=== PATIENT | female | born 1980 | race Caucasian/White ===

== ENCOUNTER 2016-06-26 14:39 | Outpatient (CLI) | payer OTHER, MEDICAID | END 2016-06-26 14:40 | disposition home or self-care (01) | DX: Z00.00 Encounter for general adult medical examination without abnormal findings (principal) ==

== ENCOUNTER 2018-08-04 21:31 | Outpatient (CLI) | payer BC ==
--- NOTE | 2018-08-05 09:16 | Ultrasound Report ---
Reason: FEMALE URINARY STRESS INCONTINENCE, CHRONIC PELVIC Procedure Date: 08/04/2018 Accession Number: [id number] / [id number] Procedure: US - Pelvic w/Transvaginal CPT Code: FULL RESULT: EXAM: PELVIC ULTRASOUND EXAM DATE: 08/04/2018 11:05 PM. CLINICAL HISTORY: Female urinary stress incontinence, chronic pelvic pain. COMPARISON: None. TECHNIQUE: Realtime transabdominal pelvic scan performed to identify the uterus and adnexa and as an overview of other pelvic structures, followed by transvaginal scan to provide greater detail of the uterus and adnexa, with static image documentation. FINDINGS: Uterus: 7.5 x 5.4 x 4.2 cm, volume 89 cc. Retroverted position. Normal overall size and echotexture. Masses: None. Endometrium: 9 mm. Normal. Cervix: Unremarkable. Right Ovary: 2.9 x 1.9 x 2.4 cm, volume 6.9 cc. Normal echotexture and blood flow. Left Ovary: 3.5 x 2.4 x 1.6 cm, volume 7.0 cc. Normal echotexture and blood flow. Free Fluid: Small free fluid in the cul-de-sac within physiologic limits. Other: None. IMPRESSION: Normal pelvic ultrasound. RADIA
== END 2018-08-04 21:32 | disposition home or self-care (01) ==
LOC: DI 21:31
PROVIDERS: ATTEND Obstetrics & Gynecology
DX: N39.3 Stress incontinence (female) (male) (principal); R10.2 Pelvic and perineal pain; N94.6 Dysmenorrhea, unspecified
CPT/HCPCS: 76830; 76856

== ENCOUNTER 2019-05-13 12:39 | Emergency (ER) | payer OTHER ==
[2019-05-13 13:01] VITALS: BP 125/93
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
[2019-05-13] MEDS ORDERED: ACETAMINOPHEN 325 MG TABLET PO STA (14:46)
[2019-05-13] MEDS ORDERED: TETANUS/DIPHTHERIA/PERTUSSIS 0.5 ML SYRINGE IM ONE (14:46)
== END 2019-05-13 17:19 | disposition home or self-care (01) ==
LOC: ED 12:39
DX: S50.02XA Contusion of left elbow, initial encounter (principal); S50.312A Abrasion of left elbow, initial encounter; S50.871A Other superficial bite of right forearm, initial encounter; W50.3XXA Accidental bite by another person, initial encounter; W20.8XXA Other cause of strike by thrown, projected or falling object, initial encounter; Y92.009 Unspecified place in unspecified non-institutional (private) residence as the place of occurrence of the external cause; Z23 Encounter for immunization
CPT/HCPCS: 90471; 90715; 99283; 99284; A9270

== ENCOUNTER 2020-01-16 16:25 | Outpatient (CLI) | payer OTHER | END 2020-01-16 16:26 | disposition home or self-care (01) | LOC: COV 16:25 | PROVIDERS: ATTEND Family Medicine | DX: Z20.828 Contact with and (suspected) exposure to other viral communicable diseases (principal) ==

== ENCOUNTER 2020-01-18 13:02 | Emergency (ER) | payer OTHER ==
[2020-01-18 13:37] LABS: BASOPHILS # (AUTO) 0.1 10^3/uL (0.0-0.1); EOSINOPHILS # (AUTO) 0.1 10^3/uL (0.0-0.7); HGB - HEMOGLOBIN 14.1 g/dL (12.0-16.0); LYMPHOCYTES # (AUTO) 2.4 10^3/uL (1.5-3.5); LYMPHOCYTES % (AUTO) 39.9 %; MEAN CORPUSCULAR HEMOGLOBIN 29.9 pg (27.0-31.0); MEAN CORPUSCULAR HGB CONC 34.5 g/dL (32.0-36.0); MEAN CORPUSCULAR VOLUME 86.8 fL (81.0-99.0); MEAN PLATELET VOLUME 9.7 fL (7.9-10.8); MONOCYTES # (AUTO) 0.4 10^3/uL (0.0-1.0); MONOCYTES % (AUTO) 6.8 %; PLT - PLATELET COUNT 311 10^3/uL (130-450); RED BLOOD COUNT 4.71 10^6/uL (4.20-5.40); RED CELL DISTRIBUTION WIDTH 12.3 % (12.0-15.0); WHITE BLOOD COUNT 6.1 x10^3/uL (4.8-10.8)
[2020-01-18 13:51] LABS: ALBUMIN 4.3 g/dL (3.2-5.5); ALBUMIN/GLOBULIN RATIO 1.4 (1.0-2.2); BILIRUBIN,TOTAL 0.8 mg/dL (0.2-1.0); CALCIUM 9.2 mg/dL (8.5-10.3); CREATININE 0.7 mg/dL (0.4-1.0); TOTAL PROTEIN 7.3 g/dL (6.7-8.2)
--- NOTE | 2020-01-18 14:16 | XRAY Report ---
PROCEDURE: Chest 1 View X-Ray INDICATIONS: Chest pain TECHNIQUE: One view of the chest was acquired. COMPARISON: None FINDINGS: Surgical changes and devices: None. Lungs and pleura: No pleural effusions or pneumothorax. Lungs are clear. Mediastinum: Mediastinal contours appear normal. Heart size is normal. Bones and chest wall: No suspicious bony lesions. Overlying soft tissues appear unremarkable. IMPRESSION: No evidence acute pulmonary process. Reviewed by: Chaim Olsen MD on 01/18/2020 1:15 PM AKALFONZO Approved by: Chaim Olsen MD on 01/18/2020 1:15 PM AKDT Station ID: [id number]
--- NOTE | 2020-01-18 15:09 | ED Physician Documentation ---
History of Present Illness - Stated complaint Stated Complaint: CHEST TIGHTNESS - Chief complaint Chief Complaint: Cardiac - Additonal information Additional information: 39-year-old female presents to the emergency department for evaluation of acute onset chest tightness and pain that began this morning about 9 AM when drinking coffee. She denies that she has had fevers or cough. Chest pain is not pleuritic. She does not carry history of hypertension or diabetes. She is not a smoker. However she does report a history of a DVT when she was . Review of Systems Constitutional: reports: Reviewed and negative Eyes: reports: Reviewed and negative Ears: reports: Reviewed and negative Throat: reports: Reviewed and negative Cardiac: reports: Chest pain / pressure, Palpitations Respiratory: reports: Reviewed and negative GI: reports: Reviewed and negative : reports: Reviewed and negative Skin: reports: Reviewed and negative Musculoskeletal: reports: Reviewed and negative PD PAST MEDICAL HISTORY - Past Medical History Past Medical History: Yes - Past Surgical History Past Surgical History: No - Allergies Allergies/Adverse Reactions: Allergies Allergy/AdvReac Type Severity Reaction Status Date / Time No Known Drug Allergies Allergy Verified 01/18/20 13:22 - Social History Does the pt smoke?: No Smoking Status: Never smoker Does the pt drink ETOH?: No Does the pt have substance abuse?: No - Immunizations Immunizations are current?: Yes - POLST Patient has POLST: No PD ED PE NORMAL - General General: Alert and oriented X 3, No acute distress - HEENT HEENT: Atraumatic, EOMI - Cardiac Cardiac: RRR, No murmur, No gallop, No rub, Strong equal pulses - Respiratory Respiratory: No respiratory distress - Abdomen Abdomen: Normal bowel sounds, Soft - Female Female : Deferred - Back Back: No CVA TTP - Derm Derm: Normal color, Warm and dry - Extremities Extremities: No deformity, No tenderness to palpate, Normal ROM s pain - Neuro Neuro: Alert and oriented X 3 Eye Opening: Spontaneous Motor: Obeys Commands Verbal: Oriented GCS Score: 15 Results - Vitals Vitals: Vital Signs - 24 hr 01/18/20 01/18/20 01/18/20 13:10 14:21 16:24 Temperature 37 C 37 C Heart Rate 82 81 72 Respiratory 16 16 16 Rate Blood Pressure 130/85 H 130/85 H 145/91 H O2 Saturation 98 100 99 Oxygen O2 Source Room air - EKG (time done) 1315 Rate: Rate (enter#) (79) Rhythm: NSR [place]: Normal Intervals: Normal [place] QRS: Normal Ischemia: Normal ST segments Computer interpretation: Agree with computer - Labs Labs: Laboratory Tests 01/18/20 01/18/20 01/18/20 13:33 13:33 13:33 WBC 6.1 RBC 4.71 Hgb 14.1 Hct 40.9 MCV 86.8 MCH 29.9 MCHC 34.5 RDW 12.3 Plt Count 311 MPV 9.7 Neut # (Auto) 3.0 Lymph # (Auto) 2.4 [place] # (Auto) 0.4 Eos # (Auto) 0.1 Baso # (Auto) 0.1 Absolute Nucleated RBC 0.00 Nucleated RBC % 0.0 Sodium 136 Potassium 4.0 Chloride 102 Carbon Dioxide 25 Anion Gap 9.0 BUN 10 Creatinine 0.7 Estimated GFR (MDRD) 93 Glucose 105 H Calcium 9.2 Total Bilirubin 0.8 AST 18 ALT 23 Alkaline Phosphatase 46 Troponin I High Sens < 2.3 L Total Protein 7.3 Albumin 4.3 Globulin 3.0 Albumin/Globulin Ratio 1.4 Lipase 24 Ur Specific [place] Urine HCG, Qual 01/18/20 15:21 WBC RBC Hgb Hct MCV MCH MCHC RDW Plt Count MPV Neut # (Auto) Lymph # (Auto) [place] # (Auto) Eos # (Auto) Baso # (Auto) Absolute Nucleated RBC Nucleated RBC % Sodium Potassium Chloride Carbon Dioxide Anion Gap BUN Creatinine Estimated GFR (MDRD) Glucose Calcium Total Bilirubin AST ALT Alkaline Phosphatase Troponin I High Sens Total Protein Albumin Globulin Albumin/Globulin Ratio Lipase Ur Specific [place] 1.025 Urine HCG, Qual NEGATIVE - Rads (name of study) CT angio chest Radiology: Final report received (No evidence of pulmonary emboli. No thoracic aortic aneurysm or dissection. Lungs are clear.) PD MEDICAL DECISION MAKING - ED course Complexity details: reviewed results, considered differential, d/w patient ED course: 39-year-old female presents to the emergency department with acute onset chest discomfort and chest tightness this morning. She does have a history of previous DVT when she was that they had attributed to OCP use. Her EKG today is nonischemic. Her labs are otherwise unremarkable with a negative high- sensitivity troponin. Chest x-ray shows no acute infiltrates. CT angio was performed of the chest and it does not show any pulmonary emboli clear. At this time patient is stable for discharge home. Advised to schedule close follow-up with her primary care doctor. Departure - Departure Disposition: Home, Self Care Clinical Impression: Chest pain Qualifiers: Chest pain type: unspecified Qualified Code(s): R07.9 - Chest pain, unspecified Condition: Stable Record reviewed to determine appropriate education?: Yes Instructions: ED Chest Pain NonCardiac Follow-Up: BECKA RASCON, MSN, DIVISION CHAIR [Primary Care Provider] - Comments: Sandra your chest x-ray EKG labs were all normal today. The CT of your chest di d not show a blood clot. It is possible that the muscles in between your ribs are inflamed. I do recommend that you take ibuprofen at home for pain. Please schedule close follow-up with your primary care doctor. He return to the emergency department with any difficulty breathing, leg swelling or bloody sputum
[2020-01-18 15:35] LABS: HCG UR QUAL NEGATIVE
[2020-01-18] MEDS ORDERED: IOVERSOL 320 100 ML VIAL IVP ONE ×2 (16:10→17:33)
--- NOTE | 2020-01-18 16:41 | CT Report ---
PROCEDURE: ANGIO CHEST W/WO INDICATIONS: hx of DVT; chest pain and dyspnea CONTRAST: IV CONTRAST: Optiray 320 ml: 80 PO CONTRAST: *NO PO CONTRAST TECHNIQUE: After the administration of intravenous contrast, 2 mm thick sections acquired from the pulmonary api paloma to the posterior costophrenic angles. 3-dimensional maximum intensity projection (MIP) coronal a nd sagittal reformats were then acquired through the thorax. For radiation dose reduction, the follow ing was used: automated exposure control, adjustment of mA and/or kV according to patient size. COMPARISON: Chest radiograph on the same date. FINDINGS: Image quality: Excellent. Pulmonary arteries: Pulmonary arteries are normal in size, and demonstrate no intraluminal filling d efects to suggest central pulmonary embolism. Lungs and pleura: Lungs are clear. No pleural effusions or pneumothorax. Central and peripheral ai rways are patent. Mediastinum: Heart size is normal, without pericardial effusion. No mediastinal or hilar adenopathy . Thoracic aorta is normal in caliber and enhancement. Esophagus is normal in caliber, without hiat al hernia. Bones and chest wall: No suspicious bony lesions. Ribs and thoracic spine appear intact throughout. The thyroid is normal. No axillary or supraclavicular adenopathy. Abdomen: Visualized upper abdominal solid organs appear normal in the early arterial phase of enhanc ement. There is mild hepatic steatosis. IMPRESSION: 1. No evidence of pulmonary emboli. No thoracic aortic aneurysm or dissection. 2. Lungs are clear. Reviewed by: Twin Youssef MD on 01/18/2020 4:40 PM PDT Approved by: Twin Youssef MD on 01/18/2020 4:40 PM PDT Station ID: [id number]
[2020-01-18 17:01] VITALS: BP 146/91
== END 2020-01-18 17:07 | disposition home or self-care (01) ==
LOC: ED 13:02
DX: R07.9 Chest pain, unspecified (principal); Z86.718 Personal history of other venous thrombosis and embolism
CPT/HCPCS: 36415; 71045; 71275; 80053; 81025; 83690; 84484; 85025; 93005; 99284; Q9967

== ENCOUNTER 2020-07-09 08:00 | Outpatient (CLI) | payer OTHER ==
[2020-07-09 12:15] LABS: CALCIUM 9.2 mg/dL (8.5-10.3); CREATININE 0.6 mg/dL (0.4-1.0)
[2020-07-09 12:34] LABS: THYROID STIMULATING HORMONE 1.63 uIU/mL (0.34-5.60)
[2020-07-09 12:35] LABS: CHOL/HDL RATIO 5.9 (<4.4); CHOLESTEROL 290 mg/dL; HDL CHOLESTEROL 49 mg/dL; LDL CHOLESTEROL,CALCULATED 189 mg/dL; LDL/HDL RATIO 3.9 (<4.4); TRIGLYCERIDES 258 mg/dL; VLDL CHOLESTEROL 52 mg/dL
[2020-07-09 12:38] LABS: ESTIMATED AVERAGE GLUCOSE 114 mg/dL (70-100); HEMOGLOBIN A1c% 5.6 % (4.27-6.07)
== END 2020-07-09 23:59 | disposition home or self-care (01) ==
LOC: LAB.WCP 08:00
PROVIDERS: ATTEND Nurse Practitioner Family
DX: E66.9 Obesity, unspecified (principal); E28.2 Polycystic ovarian syndrome
CPT/HCPCS: 36415; 80048; 80061; 83036; 83721; 84443

== ENCOUNTER 2020-07-22 17:08 | Outpatient (CLI) | payer OTHER | END 2020-07-22 17:09 | disposition home or self-care (01) | LOC: COV 17:08 | PROVIDERS: ATTEND Family Medicine | DX: R19.7 Diarrhea, unspecified (principal); R09.81 Nasal congestion; Z20.822 Contact with and (suspected) exposure to COVID-19 ==

== ENCOUNTER 2020-09-19 08:00 | Outpatient (CLI) | payer OTHER | END 2020-09-19 23:59 | disposition home or self-care (01) | LOC: LAB.N 08:00 | PROVIDERS: ATTEND Family Medicine | DX: R35.0 Frequency of micturition (principal) | CPT/HCPCS: 87086 ==

== ENCOUNTER 2020-11-14 10:45 | Outpatient (CLI) | payer OTHER ==
[2020-11-14 18:01] LABS: BILIRUBIN,URINE NEGATIVE (NEGATIVE); GLUCOSE, URINE (UA) NEGATIVE (NEGATIVE); KETONES,URINE (UA) NEGATIVE (NEGATIVE); LEUKOCYTE ESTERASE, URINE NEGATIVE (NEGATIVE); NITRITE,URINE NEGATIVE (NEGATIVE); OCCULT BLOOD,URINE NEGATIVE (NEGATIVE); PH,URINE 5.5 PH (5.0-7.5); PROTEIN,URINE NEGATIVE (NEGATIVE); UROBILINOGEN,URINE 0.2 (NORMAL) E.U./dL (NORMAL)
[2020-11-14 18:05] LABS: CLARITY,URINE CLOUDY (CLEAR)
[2020-11-14 18:20] LABS: AMORPHOUS SEDIMENT,UR Marked /LPF; BACTERIA,URINE Rare /HPF (None Seen); RBC,URINE 0-5 /HPF (0-5); SQUAMOUS EPITHELIAL CELL,UR RARE Squamous (<= Few); WBC,URINE 0-3 /HPF (0-5)
== END 2020-11-14 23:59 | disposition home or self-care (01) ==
LOC: LAB.WCP 10:45
PROVIDERS: ATTEND Nurse Practitioner
DX: N39.3 Stress incontinence (female) (male) (principal)
CPT/HCPCS: 81001; 87086

== ENCOUNTER 2020-11-15 09:55 | Outpatient (CLI) | payer OTHER ==
[2020-11-15 10:43] VITALS: BP 124/83
--- NOTE | 2020-11-15 10:43 | SLEEP CARE CONSULTATION ---
Information from patient questionnaire entered by Ginger Mckinley. I have reviewed and concur with the information entered by Ginger Mckinley. This document represents the service I personally performed and the decisions made by me, Carmen Gómez ARNP. History of Present Illness Service Date and Time: 11/15/2020 0955 Reason for Visit: New patient, Re-[facility] (Last seen 2013) Chief Complaint: reports: Unrefreshed sleep, Snoring, Frequent awakenings at night, Other (tonsils, overweight) Date of Onset: 5 years; snored since a child Usual bedtime: 10 - 11:30 pm Time it takes to fall asleep: not long - 5 minutes? Snores at night: Yes Observed to quit breathing while asleep: Yes Number of times waking at night: 1-2 Reasons for waking at night: reports: Snoring, Gasping for air, Bathroom Toss, Turn, or Twitch while sleeping: Yes (so much; rolls and kicks a lot in sleep) Recalls having dreams: Yes Usually gets out of bed at: 6:30 - 7:30 am Feels refreshed in the morning: No Morning headache: Yes (resolves after coffee; about every morning, just tired) Sleepy or fatigued during the day: Yes (4 pm dip, tired, brain fog) Ever fallen asleep while driving: No Takes day naps: No Prior sleep studies: Yes Year and Where: 2013(negative) - [facility] Sleep Type of Sleep Study: Polysomnography Additional HPI information: I had the pleasure of seeing BRADFORD AGUIRRE today regarding the possibility of her having a sleep disorder. Her current complaints are snoring and frequent night awakenings. [facility] and her provider was asking her questions about her sleep and health. She was then referred here for sleep study but she doesn't remember the reasoning. She did have a sleep study around 2013 but she does not feel like she slept that night adequate time for measurement. She has snored all her life. She has a history of PCOS. Patient states that normally she has slept through night until this last year she has to get up to the bathroom. She also feels her sleep is off since Covid started. She thinks she is more tired daily because she is not getting enough sleep. She will often go to sleep around midnight and still get up about 6 AM. - Parasomnia Symptoms Ever been unable to move upon waking from sleep: No Walks in sleep: No Talks in sleep: Yes Ever acted out dreams in sleep: No Ever felt weak in the knees when startled or emotional: No Bothered by creepy, crawly, restless sensations in legs: No Problems with memory or concentration: Yes (both; memory loss as gets older) Subjective Initial [place] Sleepiness Scale score: 1 (in 2020) Past Medical History Past Medical History: reports: Insulin resistance (PCOS), Attention deficit, Other (PCOS, obesity, mild allergies (seasonal), problems w/tonsils (tonsil stones)) Social History The patient's occupation is a TEACHER. Patient is and lives in [place]. Have you smoked in the past 12 months: No Alcohol use: Yes Alcohol amount and frequency: socially, etc.. 1-2 times a week Caffeine use: Yes Caffeine amount and frequency: 3 cups daily, 2 cups in the am, 1 late in the day around 3-4 pm Family History Family history of sleep disordered breathing: Yes Family Hx Sleep Apnea: Mother: Snoring, Sleep apnea - Untreated, Father: Snoring, Sleep apnea - Untreated Allergies and Home Medications Drug allergies reviewed: Yes (NKDA) Home medication list reviewed: Yes Allergy and home medication list: Metformin Spironolactone Loratidine, prn Flonase, prn Review of Systems Weight gain over past 5 years: 40 Weight loss over past 5 years: up and down Cardiovascular: denies: high blood pressure Gastrointestinal: reports: heartburn (had some last year) Urinary: reports: incontinence, other (pelvic floor - [facility]) Neurological: denies: headaches Psychiatric: reports: Attention Deficit Hyperactivity (possibly) Ear/Nose/Throat: reports: wisdom teeth removed. denies: tonsillectomy Endocrine: reports: other (PCOS). denies: thyroid disease Musculoskeletal: reports: back pain Immunologic: reports: allergies to food or environment (post nasal drip) Physical Exam Blood Pressure: 124/83 Cuff size: wrist Heart Rate: 86 O2 Saturation: 99 Height: 5 ft 2 in Weight: 193 lb Body Mass Index: 35.3 BMI Classification: Obese Neck circumference: 15.25 (inches) Mouth and throat: narrow oropharynx Soft palate: long Hard palate: normal Uvula: normal Uvula visualization: 100% Mallampati Class I Tongue: enlarged in size with teeth gallardo on lateral edges Tonsils: small Heart: regular rate and rhythm Lungs: clear bilaterally Impression and Plan 1. Suspected Obstructive Sleep Apnea-Hypopnea Syndrome, as suggested by a history of loud and irregular snoring, gasping or choking in sleep, morning headache, unrefreshed sleep, cognitive impairment, and excessive daytime sleepiness. Narrow oropharynx and obesity are common predisposing factors for obstructive sleep apnea-hypopnea syndrome. I recommend proceeding to polysomnography to confirm the diagnosis and to assess severity. If the patient has significant sleep disordered breathing, a manual CPAP titration study will also be performed to find the optimal treatment pressure. I informed the patient of what the sleep studies involve and after some discussion, obtained agreement to proceed. The pathophysiology of obstructive sleep apnea-hypopnea syndrome was discussed with the patient and health risks of cardiovascular and cerebrovascula r disease if not treated. [facility] brochure for obstructive sleep apnea-hypopnea syndrome given and reviewed. Risks of drowsy driving discussed in detail and patient advised to avoid long distance driving and to pick pulling machine operator at the first sign of drowsiness. Patient agreed to plan. * Schedule polysomnography +- manual CPAP titration study and return in 1-2 weeks after the study to discuss result and initiate therapy. * Avoid long distance driving or driving when feeling sleepy. * Avoid alcohol, sedative and muscle relaxant around bedtime. * Attempt to lose weight. * Review instructions provided by trained office staff on how to prepare for the sleep study. * Return for follow-up after sleep study completed. Counseling Topics: Weight loss health impact Visit Type: In Office Time Spent with Patient (minutes): 34 Provider Statement: I spent 100% of the Face to Face Visit with the patient with greater than 50% spent counseling the patient and coordination of care.
== END 2020-11-15 09:56 | disposition home or self-care (01) ==
LOC: SC 09:55
PROVIDERS: ATTEND Nurse Practitioner Family
DX: G47.10 Hypersomnia, unspecified (principal); R41.89 Other symptoms and signs involving cognitive functions and awareness; G47.8 Other sleep disorders; R51.9 Headache, unspecified; R06.83 Snoring; E66.9 Obesity, unspecified; Z68.35 Body mass index [BMI] 35.0-35.9, adult
CPT/HCPCS: 99203; 99212

== ENCOUNTER 2020-11-22 15:20 | Outpatient (CLI) | payer OTHER ==
--- NOTE | 2020-11-22 16:09 | XRAY Report ---
PROCEDURE: Shoulder 3 View RT INDICATIONS: UNSPECIFIED SPRAIN OF RIGHT SHOULDER JOINT TECHNIQUE: 3 views of the shoulder were acquired. COMPARISON: None. FINDINGS: Bones: No fractures or dislocations. No suspicious bony lesions. Mild acromioclavicular joint osteo arthritic changes are seen. Visualized ribs appear intact. Soft tissues: No suspicious soft tissue calcifications. IMPRESSION: No shoulder fracture or dislocation. Mild acromioclavicular joint osteoarthritis. Reviewed by: Twin Youssef MD on 11/22/2020 4:08 PM PDT Approved by: Twin Youssef MD on 11/22/2020 4:08 PM PDT Station ID: [id number]
== END 2020-11-22 15:21 | disposition home or self-care (01) ==
LOC: DI.N 15:20
PROVIDERS: ATTEND Nurse Practitioner
DX: M19.011 Primary osteoarthritis, right shoulder (principal)

== ENCOUNTER 2020-12-18 19:19 | Outpatient (CLI) | payer OTHER | END 2020-12-18 19:20 | disposition home or self-care (01) | LOC: SC 19:19 | PROVIDERS: ATTEND Nurse Practitioner Family | DX: G47.33 Obstructive sleep apnea (adult) (pediatric) (principal); G47.61 Periodic limb movement disorder | CPT/HCPCS: 95810 ==

== ENCOUNTER 2021-04-07 12:51 | Outpatient (CLI) | payer OTHER ==
--- NOTE | 2021-04-07 16:43 | MRI Report ---
PROCEDURE: Upper Arm/Humerus RT W/O INDICATIONS: UNSPEC SPRAIN OF RIGHT SHOULD JOINT, BICEPS TENDINITIS TECHNIQUE: Noncontrast coronal and sagittal T1 spin echo and STIR; axial T1 spin echo and T2 fast spin echo with fat saturation through the right humerus. COMPARISON: None. FINDINGS: Image quality: Excellent. Bones: The visualized bone marrow demonstrates normal signal on all sequences. The overlying cortex appears intact. No fractures lines or intra-osseous lesions. Soft tissues: The scanned muscles demonstrate normal overall bulk and internal signal. Subcutaneous tissues appear normal as well. No soft tissue masses are present. IMPRESSION: No significant abnormality. Reviewed by: Alexander Cleaning MD on 04/07/2021 4:42 PM PST Approved by: Alexander Cleaning MD on 04/07/2021 4:42 PM PST Station ID: [id number]
--- NOTE | 2021-04-07 17:00 | MRI Report ---
PROCEDURE: Shoulder RT W/O INDICATIONS: STRAIN OF RIGHT SHOULDER, BICEPS TENDINITIS TECHNIQUE: Noncontrast oblique coronal T2 fast spin echo with fat saturation, oblique sagittal T1 spin echo and T2 fast spin echo with fat saturation, axial T1 spin echo and T2 fast spin echo with fat saturation t hrough the shoulder. COMPARISON: None. FINDINGS: Image quality: Excellent. Rotator cuff: Tendinosis and low to moderate grade articular and bursal surface partial-thickness tea r involving distal supraspinatus at its insertion on humeral head is seen extending to musculotendino us junction. Distal infraspinatus tendinosis is noted. Distal subscapularis tendinosis and low-grade intrasubstance partial thickness tear is seen. No full-thickness rotator cuff tendon rupture. No sign ificant rotator cuff muscle atrophy on sagittal images. Bones and bursae: No bone marrow contusions or fractures. Mild acromioclavicular joint osteoarthriti c changes are seen with downward osteophyte formation depressing on musculotendinous junction of supr aspinatus. Small joint effusion and subacromial subdeltoid bursal fluid is seen. Capsule and soft tissues: There is subtle superior anterior labral signal abnormality and contour irr egularity at 12 to 1:00 position concerning for subtle superior anterior labral tear. The long head o f the biceps tendinosis and low to moderate grade intrasubstance partial-thickness tear is seen. The rotator interval appears normal, without fibrosis. The coracohumeral ligament is normal in thickness . IMPRESSION: 1. Tendinosis and low to moderate grade articular and bursal surface partial-thickness tear involving distal supraspinatus extending to musculotendinous junction. Distal infraspinatus and subscapularis tendinosis. Low-grade intrasubstance partial thickness tear is also noted involving distal subscapula ris. No full-thickness rotator cuff tendon rupture. 2. Tendinosis and low to moderate grade intrasubstance partial thickness tear involving proximal intr a-articular portion of long head of biceps. 3. Finding is concerning for subtle superior anterior labral tear at 12 to 1:00 position. 4. Mild acromioclavicular joint osteoarthritis. Small joint effusion and subacromial subdeltoid bursa l fluid. Reviewed by: Twin Youssef MD on 04/07/2021 4:59 PM PST Approved by: Twin Youssef MD on 04/07/2021 4:59 PM PST Station ID: [id number]
== END 2021-04-07 12:52 | disposition home or self-care (01) ==
LOC: DI 12:51
PROVIDERS: ATTEND Nurse Practitioner
DX: M75.111 Incomplete rotator cuff tear or rupture of right shoulder, not specified as traumatic (principal); S46.111A Strain of muscle, fascia and tendon of long head of biceps, right arm, initial encounter; M75.20 Bicipital tendinitis, unspecified shoulder

== ENCOUNTER 2023-04-12 08:00 | Outpatient (CLI) | payer OTHER ==
[2023-04-12 16:04] LABS: BILIRUBIN,URINE NEGATIVE (NEGATIVE); GLUCOSE, URINE (UA) NEGATIVE (NEGATIVE); KETONES,URINE (UA) NEGATIVE (NEGATIVE); LEUKOCYTE ESTERASE, URINE NEGATIVE (NEGATIVE); NITRITE,URINE NEGATIVE (NEGATIVE); OCCULT BLOOD,URINE NEGATIVE (NEGATIVE); PROTEIN,URINE NEGATIVE (NEGATIVE); UROBILINOGEN,URINE 0.2 (NORMAL) E.U./dL (NORMAL)
[2023-04-12 16:09] LABS: CLARITY,URINE CLEAR (CLEAR)
[2023-04-12 16:11] LABS: BACTERIA,URINE None Seen /HPF (None Seen); RBC,URINE 0-5 /HPF (0-5); SQUAMOUS EPITHELIAL CELL,UR RARE Squamous (<= Few); WBC,URINE 0-3 /HPF (0-5)
[2023-04-12 22:54] LABS: BACTERIAL VAGINOSIS DNA NEGATIVE (NEGATIVE); CANDIDA GLABRATA DNA NEGATIVE (NEGATIVE); CANDIDA GROUP DNA NEGATIVE (NEGATIVE); CANDIDA KRUSEI DNA NEGATIVE (NEGATIVE); TRICHOMONAS VAGINALIS DNA NEGATIVE (NEGATIVE)
== END 2023-04-12 23:59 | disposition home or self-care (01) ==
LOC: LAB.WC 08:00
PROVIDERS: ATTEND Nurse Practitioner
DX: N39.3 Stress incontinence (female) (male) (principal)
CPT/HCPCS: 81001; 81514; 81599; 87086